=== PATIENT | female | born 1980 ===

== ENCOUNTER → 2022-08-08 | Outpatient (CLI) | payer OTHER | LOC: LAB 10:44 → LAB SHORT 10:44 | DX: L08.9 Local infection of the skin and subcutaneous tissue, unspecified (principal); L30.9 Dermatitis, unspecified; L29.0 Pruritus ani; L21.8 Other seborrheic dermatitis; L81.4 Other melanin hyperpigmentation; D18.01 Hemangioma of skin and subcutaneous tissue; L57.8 Other skin changes due to chronic exposure to nonionizing radiation; F17.200 Nicotine dependence, unspecified, uncomplicated | CPT/HCPCS: 87070; 87077; 87147; 87186; 87205 ==